=== PATIENT | female | born 1960 | race Caucasian/White ===

== ENCOUNTER 2017-07-28 05:40 | Emergency (ER) | payer BC, OTHER ==
[~2017-07-28] VITALS: Ht 162.6 cm; Wt 73.7 kg
[2017-07-28] MEDS ORDERED: AMLO5TAB2 PO (06:33)
[2017-07-28] MEDS ORDERED: HYDROmorphone 1 MG/ML, 1ML ONE (07:12)
[2017-07-28] MEDS ORDERED: HYDROmorphone 1 MG/ML, 1ML IM PRN (07:30)
[2017-07-28 08:23] VITALS: BP 128/83
== END 2017-07-28 08:25 | disposition home or self-care (01) ==
LOC: ED 06:42
DX: S42.302A Unspecified fracture of shaft of humerus, left arm, initial encounter for closed fracture (principal); F17.210 Nicotine dependence, cigarettes, uncomplicated; I10 Essential (primary) hypertension; W10.9XXA Fall (on) (from) unspecified stairs and steps, initial encounter; Y93.89 Activity, other specified; Y92.009 Unspecified place in unspecified non-institutional (private) residence as the place of occurrence of the external cause; Y99.8 Other external cause status
CPT/HCPCS: 73060; 96372; 99284; J1170